=== PATIENT | male | born 1985 | race African-American/Black ===

== ENCOUNTER 2017-07-23 22:33 | Inpatient (IN) | payer MEDICAID, OTHER ==
[~2017-07-23] VITALS: Ht 175.3 cm; Wt 65.4 kg
[~2017-07-23 22:33] MED LIST: OLAN10TA6 PO
[2017-07-23] MEDS ORDERED: OLAN10TA3 PO (22:36)
[2017-07-23 23:00] LABS: BASOPHILS % (AUTO) 0.7 % (0.0-2.0); EOSINOPHILS % (AUTO) 2.1 % (1.0-6.0); HEMATOCRIT 47.3 % (41-53); LYMPHOCYTES # (AUTO) 2.7 K/uL (1.0-4.8); LYMPHOCYTES % (AUTO) 42.7 % (22.0-44.0); MEAN CORPUSCULAR HEMOGLOBIN 33.1 pg (26.0-34.0); MEAN CORPUSCULAR HGB CONC 33.8 G/dL (31.0-37.0); MEAN CORPUSCULAR VOLUME 98 fL (80-100); MONOCYTES # (AUTO) 0.4 K/uL (0.1-1.0); MONOCYTES % (AUTO) 6.9 % (2.0-9.0); NEUTROPHILS # (AUTO) 3.1 K/uL (1.8-7.7); NEUTROPHILS % (AUTO) 47.6 % (40.0-70.0); PLATELET COUNT (AUTO) 261 K/uL (150-450); RED BLOOD CELL COUNT(AUTO) 4.83 MIL/uL (4.50-5.90); RED CELL DISTRIBUTION WIDTH 12.3 % (11.5-14.5); WHITE BLOOD COUNT (AUTO) 6.4 K/uL (4.5-11.0)
[2017-07-23 23:01] LABS: ANION GAP 10 mmol/L (8-16); CALCIUM, TOTAL 9.5 mg/dL (8.8-10.5); CARBON DIOXIDE 28 mmol/L (22-29); CHLORIDE 104 mmol/L (98-107); CREATININE 1.13 mg/dL (0.60-1.30); GLOMERULAR FILTR. RATE CALC > 60 mL/min (>60); POTASSIUM 3.5 mmol/L (3.5-5.1); SODIUM SERUM 142 mmol/L (136-145); UREA NITROGEN, BLOOD 11 mg/dL (7-18)
[2017-07-23 23:07] LABS: ALANINE AMINOTRANSFERASE 26 U/L (12-78); ALBUMIN 4.4 g/dL (3.4-5.0); ASPARTATE AMINOTRANSFERASE 19 U/L (15-37); TOTAL PROTEIN, SERUM 8.3 g/dL (6.4-8.2)
[2017-07-23] MEDS ORDERED: LORazepam 2 MG TABLET PO PRN (23:30)
[2017-07-23] MEDS ORDERED: ZOLPIDEM TARTRATE 10 MG TABLET PO PRN (23:30)
[2017-07-23] MEDS ORDERED: HALOPERIDOL 5 MG TABLET PO PRN (23:30)
[2017-07-24 16:11] VITALS: BP 120/88
[2017-07-24] MEDS ORDERED: INFLUENZA VIRUS VACCINE QVS 2017-18 (3YR+)/PF 60 MCG/0.5 ML SYRINGE IM ONE (16:30)
[2017-07-25 01:57] VITALS: BP 101/62
[2017-07-25 08:13] VITALS: BP 98/60
[2017-07-25] MEDS ORDERED: BENZOCAINE/MENTHOL LOZENGE MM PRN (09:00)
[2017-07-25] MEDS ORDERED: BACITRACIN 28.4 GM OINTMENT TP PRN (09:00)
[2017-07-25] MEDS ORDERED: PETROLATUM,WHITE 71 GM JELLY TP PRN (09:00)
[2017-07-25] MEDS ORDERED: ONDANSETRON HCL 4 MG TABLET PO PRN (09:00)
[2017-07-25] MEDS ORDERED: IBUPROFEN 600 MG TABLET PO PRN (09:00)
[2017-07-25] MEDS ORDERED: LOPERAMIDE HCL 2 MG CAPSULE PO PRN (09:00)
[2017-07-25] MEDS: CHOLECALCIFEROL (VIT D3) 1,000 UNITS TABLET PO SCH (09:00)
[2017-07-25] MEDS ORDERED: ACETAMINOPHEN 325 MG TABLET PO PRN (09:00)
[2017-07-25] MEDS ORDERED: MAGNESIUM HYDROXIDE SUSPENSION 30 ML UDCUP PO PRN (09:00)
[2017-07-25] MEDS ORDERED: ALBUTEROL SULFATE HFA 90 MCG/PUFF 8 GM INHALER IH PRN (09:00)
[2017-07-25] MEDS ORDERED: MAG HYDROX/AL HYDROX/SIMETH ES 30 ML SUSPENSION UDCUP PO PRN (09:00)
[2017-07-25] MEDS ORDERED: CloNIDine HCL 0.1 MG TABLET PO PRN (09:00)
[2017-07-25 16:12] VITALS: BP 110/63
[2017-07-25] MEDS: OLANZapine 10 MG TABLET PO SCH (21:13)
[2017-07-26 01:06] VITALS: BP 106/68
[2017-07-26 08:22] VITALS: BP 98/63
[2017-07-26] MEDS: CHOLECALCIFEROL (VIT D3) 1,000 UNITS TABLET PO SCH (08:39)
[2017-07-26 16:21] VITALS: BP 105/61
[2017-07-26] MEDS: OLANZapine 10 MG TABLET PO SCH (20:31)
[2017-07-27 00:20] VITALS: BP 101/61
[2017-07-27 08:52] VITALS: BP 108/64
[2017-07-27] MEDS: CHOLECALCIFEROL (VIT D3) 1,000 UNITS TABLET PO SCH (09:00)
[2017-07-27 16:19] VITALS: BP 109/64
[2017-07-27] MEDS: OLANZapine 10 MG TABLET PO SCH (20:31)
[2017-07-28 06:32] VITALS: BP 107/60
[2017-07-28] MEDS: CHOLECALCIFEROL (VIT D3) 1,000 UNITS TABLET PO SCH (08:42)
[2017-07-28 17:31] VITALS: BP 103/70
[2017-07-28] MEDS: OLANZapine 10 MG TABLET PO SCH (21:10)
[2017-07-29 06:48] VITALS: BP 100/63
[2017-07-29 08:49] VITALS: BP 99/65
[2017-07-29] MEDS: CHOLECALCIFEROL (VIT D3) 1,000 UNITS TABLET PO SCH (08:55)
[2017-07-29 16:40] VITALS: BP 122/75
[2017-07-29] MEDS: OLANZapine 10 MG TABLET PO SCH (20:21)
[2017-07-30 06:21] VITALS: BP 100/60
[2017-07-30 08:35] VITALS: BP 108/68
[2017-07-30] MEDS: CHOLECALCIFEROL (VIT D3) 1,000 UNITS TABLET PO SCH (09:39)
[2017-07-30 16:12] VITALS: BP 118/67
[2017-07-30] MEDS: OLANZapine 10 MG TABLET PO SCH (21:24)
[2017-07-31 00:19] VITALS: BP 101/62
[2017-07-31 08:32] VITALS: BP 107/61
[2017-07-31] MEDS: CHOLECALCIFEROL (VIT D3) 1,000 UNITS TABLET PO SCH (09:23)
[2017-07-31 16:17] VITALS: BP 114/72
[2017-07-31] MEDS: OLANZapine 10 MG TABLET PO SCH (21:00)
[2017-08-01 03:55] VITALS: BP 100/72
[2017-08-01 08:10] VITALS: BP 98/57
[2017-08-01] MEDS: CHOLECALCIFEROL (VIT D3) 1,000 UNITS TABLET PO SCH (09:21)
[2017-08-01 16:32] VITALS: BP 114/74
[2017-08-01] MEDS: OLANZapine 10 MG TABLET PO SCH (20:06)
[2017-08-02 06:47] VITALS: BP 100/60
[2017-08-02 08:34] VITALS: BP 97/61
[2017-08-02] MEDS: CHOLECALCIFEROL (VIT D3) 1,000 UNITS TABLET PO SCH (08:36)
[2017-08-02 16:33] VITALS: BP 123/71
[2017-08-02] MEDS: OLANZapine 10 MG TABLET PO SCH (20:48)
[2017-08-03 00:15] VITALS: BP 102/64
[2017-08-03 08:26] VITALS: BP 95/54
[2017-08-03] MEDS: CHOLECALCIFEROL (VIT D3) 1,000 UNITS TABLET PO SCH (09:03)
[2017-08-03 12:56] VITALS: BP 101/60
[2017-08-03 16:21] VITALS: BP 122/71
[2017-08-03] MEDS: OLANZapine 10 MG TABLET PO SCH (20:25)
[2017-08-04 00:56] VITALS: BP 101/63
[2017-08-04 08:21] VITALS: BP 109/62
[2017-08-04] MEDS: CHOLECALCIFEROL (VIT D3) 1,000 UNITS TABLET PO SCH (08:44)
[2017-08-04 16:35] VITALS: BP 109/79
[2017-08-04] MEDS: OLANZapine 10 MG TABLET PO SCH (21:00)
[2017-08-05 07:23] VITALS: BP 110/73
[2017-08-05 08:21] VITALS: BP 98/58
[2017-08-05] MEDS: CHOLECALCIFEROL (VIT D3) 1,000 UNITS TABLET PO SCH (08:40)
[2017-08-05 16:14] VITALS: BP 115/62
[2017-08-05] MEDS: OLANZapine 10 MG TABLET PO SCH ×2 (20:34→20:37)
[2017-08-06 06:56] VITALS: BP 115/67
[2017-08-06 08:09] VITALS: BP 107/66
[2017-08-06] MEDS: CHOLECALCIFEROL (VIT D3) 1,000 UNITS TABLET PO SCH (08:36)
[2017-08-06 16:09] VITALS: BP 102/65
[2017-08-06] MEDS: OLANZapine 10 MG TABLET PO SCH (20:25)
[2017-08-07 07:25] VITALS: BP 118/60
[2017-08-07 08:21] VITALS: BP 98/57
[2017-08-07] MEDS: CHOLECALCIFEROL (VIT D3) 1,000 UNITS TABLET PO SCH (08:51)
[2017-08-07 16:00] VITALS: BP 116/55
[2017-08-07] MEDS: OLANZapine 10 MG TABLET PO SCH (21:00)
[2017-08-08 00:48] VITALS: BP 116/68
[2017-08-08] MEDS: CHOLECALCIFEROL (VIT D3) 1,000 UNITS TABLET PO SCH (08:56)
[2017-08-08 16:30] VITALS: BP 124/80
[2017-08-08] MEDS: OLANZapine 10 MG TABLET PO SCH (21:00)
[2017-08-09] MEDS ORDERED: LORazepam 2 MG/ML VIAL ONE (03:26)
[2017-08-09] MEDS ORDERED: HALOPERIDOL LACTATE 5 MG/ML VIAL ONE (03:27)
[2017-08-09] MEDS ORDERED: DiphenhydrAMINE HCL 50 MG/ML VIAL ONE (03:27)
[2017-08-09] MEDS ORDERED: LORazepam 2 MG/ML VIAL IM ONE (03:45)
[2017-08-09] MEDS ORDERED: HALOPERIDOL LACTATE 5 MG/ML VIAL IM ONE (03:45)
[2017-08-09] MEDS ORDERED: DiphenhydrAMINE HCL 50 MG/ML VIAL IM ONE (03:45)
[2017-08-09 04:50] VITALS: BP 111/73
[2017-08-09] MEDS: CHOLECALCIFEROL (VIT D3) 1,000 UNITS TABLET PO SCH (08:33)
[2017-08-09 16:00] VITALS: BP 114/64
[2017-08-09] MEDS: OLANZapine 10 MG TABLET PO SCH (21:00)
[2017-08-10 06:05] VITALS: BP 108/66
[2017-08-10] MEDS: CHOLECALCIFEROL (VIT D3) 1,000 UNITS TABLET PO SCH (08:59)
[2017-08-10 09:34] VITALS: BP 95/54
[2017-08-10 16:17] VITALS: BP 110/64
[2017-08-10] MEDS: OLANZapine 10 MG TABLET PO SCH (21:00)
[2017-08-11 00:59] VITALS: BP 126/86
[2017-08-11 08:19] VITALS: BP 118/67
[2017-08-11] MEDS: CHOLECALCIFEROL (VIT D3) 1,000 UNITS TABLET PO SCH (12:33)
[2017-08-11 16:13] VITALS: BP 113/73
[2017-08-11] MEDS: OLANZapine 10 MG TABLET PO SCH ×2 (20:44→21:00)
[2017-08-12 06:21] VITALS: BP 106/62
[2017-08-12] MEDS: CHOLECALCIFEROL (VIT D3) 1,000 UNITS TABLET PO SCH (09:00)
[2017-08-12 09:19] VITALS: BP 93/57
[2017-08-12 16:54] VITALS: BP 128/67
[2017-08-12] MEDS: OLANZapine 10 MG TABLET PO SCH (21:00)
[2017-08-13 06:30] VITALS: BP 110/62
[2017-08-13] MEDS: CHOLECALCIFEROL (VIT D3) 1,000 UNITS TABLET PO SCH (09:00)
[2017-08-13 09:22] VITALS: BP 120/55
[2017-08-13 17:09] VITALS: BP 106/66
[2017-08-13] MEDS: OLANZapine 10 MG TABLET PO SCH (21:00)
[2017-08-14 06:27] VITALS: BP 101/61
[2017-08-14] MEDS: CHOLECALCIFEROL (VIT D3) 1,000 UNITS TABLET PO SCH (08:27)
[2017-08-14 09:07] VITALS: BP 123/70
[2017-08-14 16:39] VITALS: BP 108/63
[2017-08-14] MEDS: OLANZapine 10 MG TABLET PO SCH (21:00)
[2017-08-15 00:01] VITALS: BP 106/60
[2017-08-15 08:51] VITALS: BP 98/63
[2017-08-15] MEDS: CHOLECALCIFEROL (VIT D3) 1,000 UNITS TABLET PO SCH (09:00)
[2017-08-15] MEDS: OLANZapine 10 MG TABLET PO SCH (21:00)
[2017-08-16 06:00] VITALS: BP 102/64
[2017-08-16 08:26] VITALS: BP 109/63
[2017-08-16] MEDS: CHOLECALCIFEROL (VIT D3) 1,000 UNITS TABLET PO SCH (09:00)
[2017-08-16 16:00] VITALS: BP 129/85
[2017-08-16] MEDS: OLANZapine 10 MG TABLET PO SCH (21:40)
[2017-08-17 06:42] VITALS: BP 100/58
[2017-08-17] MEDS: CHOLECALCIFEROL (VIT D3) 1,000 UNITS TABLET PO SCH (09:00)
[2017-08-17 16:26] VITALS: BP 120/89
[2017-08-17] MEDS: OLANZapine 10 MG TABLET PO SCH (21:26)
[2017-08-18 00:26] VITALS: BP 106/65
[2017-08-18 08:00] VITALS: BP 101/63
[2017-08-18] MEDS: CHOLECALCIFEROL (VIT D3) 1,000 UNITS TABLET PO SCH (09:00)
[2017-08-18 16:00] VITALS: BP 105/65
[2017-08-18] MEDS: OLANZapine 10 MG TABLET PO SCH (20:31)
[2017-08-19 00:32] VITALS: BP 101/64
[2017-08-19] MEDS: CHOLECALCIFEROL (VIT D3) 1,000 UNITS TABLET PO SCH (08:47)
[2017-08-19 08:53] VITALS: BP 113/55
== END 2017-08-19 13:05 | disposition home or self-care (01) | DRG 750 ==
LOC: EMS 22:37 → EEVIPCON 22:37 → B2S 07-24 14:15
PROVIDERS: ADMIT Psychiatry & Neurology Psychiatry; ATTEND Psychiatry & Neurology Child & Adolescent Psychiatry
DX: F20.0 Paranoid schizophrenia (principal); F20.2 Catatonic schizophrenia; E55.9 Vitamin D deficiency, unspecified; G47.00 Insomnia, unspecified; F41.9 Anxiety disorder, unspecified; F94.0 Selective mutism; Z79.899 Other long term (current) drug therapy; Z91.14 Patient's other noncompliance with medication regimen
CPT/HCPCS: 84443; 87081; 99285; G0480; J1200; J1630; J2060; Q0162